=== PATIENT | male | born 1960 | race Caucasian/White ===

== ENCOUNTER → 2021-05-20 | Outpatient (CLI) | payer BC | LOC: CT 07:46 | DX: R97.0 Elevated carcinoembryonic antigen [CEA] (principal); K76.0 Fatty (change of) liver, not elsewhere classified | CPT/HCPCS: Q9967 ==

== ENCOUNTER → 2021-05-25 | Outpatient (CLI) | payer BC | LOC: US 13:58 | DX: R91.8 Other nonspecific abnormal finding of lung field (principal) | CPT/HCPCS: 36415; 85379; 93970 ==

== ENCOUNTER → 2021-05-31 | Outpatient (CLI) | payer BC | LOC: KOH-I 15:36 | DX: Z87.891 Personal history of nicotine dependence (principal); R91.1 Solitary pulmonary nodule | CPT/HCPCS: 71271 ==